=== PATIENT | female | born 2000 | race Caucasian/White ===

== ENCOUNTER 2023-12-22 03:24 | Emergency (ER) | payer OTHER ==
[2023-12-22 03:32] VITALS: BP 111/64; PULSE 55; RESP 16; TEMP 98.3; BMI 21.4
[2023-12-22] MEDS ORDERED: AMOX TR/POT CLAV 500MG/125MG TABLETS (FP) ONE (03:42)
[2023-12-22] MEDS: AMOX TR/POT CLAV 500MG/125MG TABLETS (FP) PO ONE (03:43)
== END 2023-12-22 03:47 | disposition home or self-care (01) ==
LOC: FER 03:24
DX: H66.93 Otitis media, unspecified, bilateral (principal); H92.03 Otalgia, bilateral
CPT/HCPCS: 99283-25